=== PATIENT | female | born 1995 | race Caucasian/White ===

== ENCOUNTER → 2018-11-30 18:50 | Observation (INO) ==
[2018-11-30 17:22] LABS: Bilirubin,Urine Small (Negative); Blood,Urine Negative (Negative); Clarity,Urine Clear (Clear); Color,Urine Dark Yellow (Yellow); Glucose,Urine (UA) Normal (Normal); Ketones,Urine Trace mg/dL (Negative); Leukocyte Esterase,Urine Negative (Negative); Nitrite,Urine Negative (Negative); PH,Urine 6.5 pH Units (5.0-8.0); Protein,Urine Trace mg/dL (Neg-Trace); Specific Gravity,Urine > 1.030 (1.010-1.025); Urobilinogen,Urine Normal (Normal)
[2018-11-30 17:37] LABS: Amphetamine Screen,Urine Negative ng/mL (Cutoff=1000); Barbiturate Screen,Urine Negative ng/mL (Cutoff=200); Benzodiazepines Screen,Urine Negative ng/mL (Cutoff=200); Cannabinoid Screen,Urine Positive ng/mL (Cutoff = 50); Cocaine Screen,Urine Negative ng/mL (Cutoff= 300); Opiate Screen,Urine Negative ng/mL (Cutoff=300); Phencyclidine Screen,Urine Negative ng/mL (Cutoff=25)
--- NOTE | 2018-11-30 19:43 | OB/GYN Progress Note ---
Date of Encounter: 11/30/18 Time of Encounter: 19:31 - Assessment and Plan (1) 29 weeks gestation of Status: Acute (2) Round ligament pain Status: Acute Cervix closed, UA unremarkable, able to elicit round ligament pain. Discharged home with labor and when to return to triage precautions. Patient verbalizes understanding Subjective - Subjective Interval history: (0111) 29 1 weeks gestation presents to triage with complaints of lower abdominal pain in the right lower quadrant. Patient states she has been at home on modified bedrest. Just recently went back to work. Notice today with increased activity especially standing and walking and going from sitting to standing having right lower quadrant pain. No pain noted at rest. Reports good movement, denies vaginal bleeding or leaking of fluid. Antepartum ROS: movement normal, no loss of fluid, no vaginal bleeding, no contractions Objective - Vital Signs Vital Signs: Intake and Output 11/30/18 11/30/18 11/30/18 07:59 15:59 23:59 Other: Weight 119.8 kg Patient Weight 11/30/18 23:59 Weight 119.8 kg - Exam FHR: auscultation normal FHR comments: Baseline 140. Appropriate for gestational age Abdomen: Present: soft, gravid Cervical dilation: Closed/thick/high - Labs Labs: Abnormal lab results Ur Specific [place] > 1.030 (1.010-1.025) H 11/30/18 16:40 Urine Ketones Trace mg/dL (Negative) H 11/30/18 16:40 Urine Bilirubin Small (Negative) H 11/30/18 16:40 U Marijuana (THC) Screen Positive ng/mL (Cutoff = 50) H 11/30/18 16:40
== END | disposition home or self-care (01) ==
LOC: 1NENULAB
PROVIDERS: ADMIT Advanced Practice Midwife; ATTEND Advanced Practice Midwife

== ENCOUNTER 2018-12-26 20:05 | Observation (INO) ==
[2018-12-26 22:12] LABS: Candida DNA Not Detected (Not Detect); Gardnerella DNA Not Detected (Not Detect); Trichomonas DNA Not Detected (Not Detect)
== END 2018-12-26 20:50 | disposition home or self-care (01) ==
LOC: 1NENULAB
PROVIDERS: ADMIT Registered Nurse; ATTEND Registered Nurse

== ENCOUNTER → 2019-01-13 01:40 | Observation (INO) ==
[2019-01-13 00:48] LABS: Bilirubin,Urine Small (Negative); Blood,Urine Negative (Negative); Clarity,Urine Clear (Clear); Color,Urine Yellow (Yellow); Glucose,Urine (UA) Normal (Normal); Ketones,Urine Negative (Negative); Leukocyte Esterase,Urine Negative (Negative); Nitrite,Urine Negative (Negative); Protein,Urine Trace mg/dL (Neg-Trace); Specific Gravity,Urine > 1.030 (1.010-1.025); Urobilinogen,Urine Normal (Normal)
--- NOTE | 2019-01-13 00:54 | OB/GYN Progress Note ---
Date of Encounter: 01/13/19 Time of Encounter: 00:48 - Assessment and Plan (1) 35 weeks gestation of Current Visit: Yes Status: Acute (2) NST (non-stress test) reactive Current Visit: Yes Status: Acute Subjective - Subjective Principal diagnosis: contractions Interval history: Ms Hoffmann is a 23 year old at 35 weeks and 3 days that presents to triage with c/o contractions every 10-20 minutes that take her breath away for several hours. She states positive movement. She denies headaches, vision changes, epigastric pain, leaking of fluid, and vaginal bleeding. Her history is significant for 1 SAB and a demise at 22 weeks. She uses THC daily. She is scheduled for a repeat LTCS with BPS on 02/07/19. She is seen by Dr Soni for her care. Antepartum ROS: movement normal, contractions Objective - Vital Signs Vital Signs: Intake and Output 01/12/19 01/12/19 01/13/19 15:59 23:59 07:59 Other: Weight 123.468 kg Patient Weight 01/13/19 23:59 Weight 123.468 kg - Exam FHR: auscultation normal, category 1 FHR comments: Baseline 140 with moderate variability and15 x 15 accels. no decels Contractions every 7 minutes per TOCO, patient reports every 10-20 minutes Abdomen: Present: normal appearance, soft, gravid. Absent: tenderness Uterus: Present: normal. Absent: firm
[2019-01-13 00:58] LABS: Amphetamine Screen,Urine Negative ng/mL (Cutoff=1000); Barbiturate Screen,Urine Negative ng/mL (Cutoff=200); Benzodiazepines Screen,Urine Negative ng/mL (Cutoff=200); Cannabinoid Screen,Urine Negative ng/mL (Cutoff = 50); Cocaine Screen,Urine Negative ng/mL (Cutoff= 300); Opiate Screen,Urine Negative ng/mL (Cutoff=300); Phencyclidine Screen,Urine Negative ng/mL (Cutoff=25)
== END | disposition home or self-care (01) ==
LOC: 1NENULAB
PROVIDERS: ADMIT Advanced Practice Midwife; ATTEND Advanced Practice Midwife

== ENCOUNTER → 2019-01-28 23:00 | Observation (INO) ==
[2019-01-28 22:34] LABS: Bilirubin,Urine Negative (Negative); Blood,Urine Negative (Negative); Color,Urine Yellow (Yellow); Glucose,Urine (UA) Normal (Normal); Ketones,Urine Negative (Negative); Leukocyte Esterase,Urine Negative (Negative); Nitrite,Urine Negative (Negative); PH,Urine 6.5 pH Units (5.0-8.0); Protein,Urine Negative (Neg-Trace); Specific Gravity,Urine 1.024 (1.010-1.025); Urobilinogen,Urine Normal (Normal)
[2019-01-28 22:38] LABS: Amphetamine Screen,Urine Negative ng/mL (Cutoff=1000); Barbiturate Screen,Urine Negative ng/mL (Cutoff=200); Benzodiazepines Screen,Urine Negative ng/mL (Cutoff=200); Cannabinoid Screen,Urine Negative ng/mL (Cutoff = 50); Cocaine Screen,Urine Negative ng/mL (Cutoff= 300); Opiate Screen,Urine Negative ng/mL (Cutoff=300); Phencyclidine Screen,Urine Negative ng/mL (Cutoff=25)
[2019-01-28 22:43] LABS: Clarity,Urine Slightly Hazy (Clear)
--- NOTE | 2019-01-28 23:04 | OB/GYN Progress Note ---
Date of Encounter: 01/28/19 Time of Encounter: 22:59 - Assessment and Plan (1) 37 weeks gestation of Current Visit: Yes Status: Acute Reactive NST movement normal after monitoring bands placed on maternal abdomen Not ruptured Discharge home with labor precautions Follow up in office with routine care and PRN (2) NST (non-stress test) reactive Current Visit: Yes Status: Acute (3) Decreased movement Current Visit: Yes Status: Acute Qualifiers: Fetus number: single or unspecified fetus Trimester: third trimester Qualified Code(s): O36.8130 - Decreased movements, third trimester, not applicable or unspecified Subjective - Subjective Principal diagnosis: loss of fluid and decreased movement Interval history: Ms Hoffmann is a 23 year old at 37 week snad 4 days that presents to triage with c/o a large gush of fluid after having a bowel movement and an additional small gush after changing her underwear this evening along with decreased movement x 1 hour. She denies recent intercourse of submerging in water. She states normal movement until roughly 8 pm this evening. She denies headaches, vision changes, epigastric pain, leaking of fluid, cramping, and vaginal bleeding. She has had one previous delivery and this fetus is currently breech. She would like to have a repeat C/S and BPS - currently it is scheduled for 02/07/19. She sees Dr Soni for her care. Antepartum ROS: loss of fluid, no vaginal bleeding, no movement normal, no contractions Objective - Vital Signs Vital Signs: Intake and Output 01/28/19 01/28/19 01/28/19 07:59 15:59 23:59 Other: Weight 124 kg Patient Weight 01/28/19 23:59 Weight 124 kg - Exam FHR: auscultation normal, category 1 FHR comments: Not cristina Baseline 130 with moderate variability >15 x 15 accels and no decels movement palpable to both patient and CNM Abdomen: Present: normal appearance, soft, gravid Uterus: Present: normal. Absent: firm, tenderness Cervical dilation: Closed Cervix effacement: Thick station: High Comments: Nitrazine negative
== END | disposition home or self-care (01) ==
LOC: 1NENULAB
PROVIDERS: ADMIT Advanced Practice Midwife; ATTEND Advanced Practice Midwife

== ENCOUNTER 2019-02-07 05:39 | Inpatient (IN) ==
[2019-02-07] MEDS ORDERED: Famotidine 20 MG/2 ML VIAL IVP ONE (06:13)
[2019-02-07] MEDS ORDERED: Ringers Solution, Lactated 1,000 ML IVC ONE (06:13)
[2019-02-07] MEDS ORDERED: Metoclopramide 10 MG/2 ML VIAL IVP ONE (06:13)
[2019-02-07] MEDS ORDERED: Ringers Solution, Lactated 1,000 ML IVC SCH (06:15)
[2019-02-07] MEDS ORDERED: CeFAZolin Syr 3,000MG/30 ML 3,000 MG/30 ML SYRINGE IVPB ONE (06:18)
[2019-02-07 06:39] LABS: Basophils % 0.1 %; Eosinophils # 0.1 K/mcL (0.0-0.6); Eosinophils % 0.8 %; Hematocrit 37.7 % (35.3-44.9); Hemoglobin 12.3 g/dL (11.5-15.4); Immature Granulocytes % 0.9 % (0-4); Lymphocytes # 3.4 K/mcL (0.6-4.6); Lymphocytes % 20.8 %; Mean Corpuscular HGB Conc 32.6 g/dL (31.6-35.5); Mean Corpuscular Hemoglobin 28.2 pg (28.0-33.3); Mean Corpuscular Volume 86.5 fL (83.0-100.0); Mean Platelet Volume 11.9 fL (9.4-12.4); Monocytes # 0.7 K/mcL (0.0-1.3); Monocytes % 4.1 %; Neutrophils # 11.9 K/mcL (1.6-8.9); Platelet Count 171 K/mcL (140-400); Red Blood Count 4.36 M/mcL (3.82-4.97); Red Cell Distribution Width 14.7 % (11.5-14.5); Segmented Neutrophils % 73.3 %; White Blood Count 16.3 K/mcL (4.3-11.1)
[2019-02-07 06:44] LABS: Amphetamine Screen,Urine Negative ng/mL (Cutoff=1000); Barbiturate Screen,Urine Negative ng/mL (Cutoff=200); Benzodiazepines Screen,Urine Negative ng/mL (Cutoff=300); Cannabinoid Screen,Urine Negative ng/mL (Cutoff = 50); Cocaine Screen,Urine Negative ng/mL (Cutoff= 300); Opiate Screen,Urine Negative ng/mL (Cutoff=300); Phencyclidine Screen,Urine Negative ng/mL (Cutoff=25)
--- NOTE | 2019-02-07 07:08 | Anesthesia Evaluation PreOp ---
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 (chronic back pain, factor 5 = no known previous clots to take, Bipolar, anxiety/depression) Other Medical History: Other ([place] BMI=40) Anesthesia History: No Prior Anesthetic Complications, Past Anesthesia (no known family hx, previous with epidural,) Alcohol Use: none Drug use: marijuana Medications and Allergies No Known Home Drugs 01/28/19 [History] Allergy/AdvReac Type Severity Reaction Status Date / Time hydromorphone [From Dilaudid] Allergy Severe Anaphylaxis Verified 01/13/19 00:32 latex Allergy Rash Verified 01/13/19 00:32 Anesthesia Results - Labs 02/07/19 06:01 Anesthesia Exam - HEENT Pupil (Motor): Pupils equal Mallampati: II Teeth: Normal Oral Opening: Greater than 3 - 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
[2019-02-07] MEDS ORDERED: *HR* Morphine Sulfate/PF 10 MG/10 ML AMPUL ONE (07:23)
[2019-02-07] MEDS ORDERED: EPHEDrine 50 MG/ML VIAL ONE (07:23)
[2019-02-07] MEDS ORDERED: Ondansetron 4 MG/2 ML VIAL ONE (07:24)
[2019-02-07] MEDS ORDERED: Ringers Solution, Lactated 1,000 ML ONE (07:24)
[2019-02-07] MEDS ORDERED: *HR* Oxytocin 10 UNIT/ML VIAL IM ONE (07:24)
[2019-02-07] MEDS ORDERED: *HR* FentaNYL (PF) 100 MCG/2 ML VIAL ONE (07:24)
[2019-02-07] MEDS ORDERED: *HR* Phenylephrine 10 MG/ML VIAL ONE (07:27)
--- NOTE | 2019-02-07 07:37 | OB/GYN History & Physical ---
Date of Encounter: 02/07/19 Time of Encounter: 07:47 Assessment and Plan (1) 39 weeks gestation of Current visit: Yes Status: Chronic (2) Unwanted fertility Current visit: Yes Status: Acute (3) Previous delivery affecting Current visit: Yes Status: Chronic (4) Gestational diabetes Current visit: Yes Status: Acute Qualifiers: Gestational diabetes mellitus control: diet-controlled Trimester: third trimester Qualified Code(s): O24.410 - Gestational diabetes mellitus in , diet controlled History of Present Illness HPI: Ms. Hoffmann is a 23 year old female 23-year-old 4 para 1 AB 1 1 white female enters today for repeat section. Patient's has been complicated from gestational diabetes. She also had an usual antibody in her blood type and screen. She been seen by maternal- medicine who recommends Lovenox for 6 weeks. Her gestational diabetes has been well controlled. She desires sterilization as well. She has a history of loss at 22 weeks. Past Med Surg Social Fam HX - Past Medical History Medical history: non-contributory Additional medical history: Psychiatric history: ADHD, bipolar, depression - Past Surgical History Surgical History: no surgical history, , other Additional surgical history: T&A, D&C - Social History Smoking Status: Current every day smoker Smokeless Tobacco Status: No Alcohol use: none Drug use: marijuana - Family History Mother Living Status: Still Living Hx Family Cardiac Disorders: Yes (hypertension) Father Family Member Ethnicity: Non- Living Status: Still Living Hx Family Cardiac Disorders: Yes (htn) Hx Family Respiratory Disorders: No Hx Family Cancer: No Hx Family GI Disorders: No Hx Family Endocrine Disorder: No Hx Family Musculoskeletal Disorders: No Hx Family Neuromuscular Disorders: No Hx Family Neurologic Disorders: No Hx Family HEENT Disorders: No Hx Family Autoimmune Disorders: No Hx Family Reproductive Disorders: No Hx Family Psychosocial Disorders: No Hx Family Medical Disorders: No Obstetrical History - Pregnancies : 4 Para: 1 Term: 1 : 1 Livin Medications and Allergies No Known Home Drugs 01/28/19 [History] Allergy/AdvReac Type Severity Reaction Status Date / Time hydromorphone [From Dilaudid] Allergy Severe Anaphylaxis Verified 01/13/19 00:32 latex Allergy Rash Verified 01/13/19 00:32 Review of System OB All systems PM: reviewed and no additional remarkable complaints except as stated - Genitourinary Genitourinary: amenorrhea - Menstruation Menstruation: amenorrhea Exam - Vital Signs Vital signs: Initial Vital Signs Temp Pulse Resp BP 98.6 F 95 16 130/77 02/07/19 05:56 02/07/19 05:56 02/07/19 05:56 02/07/19 05:56 - Constitutional Constitutional: well developed, morbidly obese - HEENT HEENT: PERRL, Normocephaly - Neck Neck exam: full ROM - Lungs Respiratory exam: CTAB - Cardiovascular Cardiovascular exam: RRR - Abdomen Abdomen: Present: bowel sounds normal, gravid - Extremities Extremities exam: full ROM Deep Tendon Reflex Grade: 2+ Normal - Vagina Vagina: Present: normal moisture - Uterus Uterus exam: Present: enlarged - Anus/Rectum Anus/Rectum: Present: normal perianal skin Results Result Diagrams: 02/07/19 06:01 Abnormal lab results WBC 16.3 K/mcL (4.3-11.1) H 02/07/19 06:01 RDW 14.7 % (11.5-14.5) H 02/07/19 06:01 Neutrophils # 11.9 K/mcL (1.6-8.9) H 02/07/19 06:01 All other labs normal.
[2019-02-07] MEDS ORDERED: Oxytocin 20 units/ LR 1000 mL 40 UNIT/2,000 ML BAG IVC ONE (07:42)
[2019-02-07] MEDS ORDERED: *HR* Enoxaparin 30 MG/0.3 ML SYRINGE SQ SCH ×3 (09:00→18:00)
[2019-02-07] MEDS ORDERED: Morphine Sulfate 2 MG/ML SYRINGE IVP PRN (09:18)
[2019-02-07] MEDS ORDERED: Acetaminophen IV 1,000 MG/100 ML INFUS..BTL IVPB ONE (09:18)
[2019-02-07] MEDS ORDERED: Ondansetron 4 MG/2 ML VIAL IVP ONE (09:18)
--- NOTE | 2019-02-07 09:30 | OB/GYN Procedure Note ---
Section - Date of procedure: 02/07/19 Preop diagnosis: desires repeat , desires sterilization Post-op diagnosis: same Procedure: repeat low transverse, bilateral tubal ligation Surgeon: Lex Singleton Blood Loss: 700 Was there an assistant engineer present: No Anesthesiologist: Andrés Castrejon Anesthesia Type: Spinal section complications: none Disposition: PACU Specimens: Placenta, Right tube segment, Left tube segment - (s) Infant A Delivery Date: 02/07/19 Delivery Time: 08:26 Presentation: complete breech Route of delivery: breech extraction Gender: Female Viability: Viable Pounds: 8 Ounces: 3 at 1 minute: 8 at 5 minutes: 9 Placenta: complete extraction - Narrative Narrative: Patient was taken to the operating room. After satisfactory anesthesia was achieved, patient placed in supine position and prepped and draped in usual manner. After appropriate timeout was obtained, abdomen was entered through standard Maylard incision. The Irena retractor was placed. Peritoneum overlying the lower uterine segment was incised in U-shaped fashion. Uterine cavity was entered sharply extended laterally. Fluid was clear. Buttocks delivered. Torso delivered. Arms and shoulders and head delivered. The umbilical cord double clamped cut and the was handed to nursery staff for further evaluation. Placenta was removed. Uterus was exteriorized. Uterus closed with 0 Monocryl in a single layer. After assurance hemostasis, fallopian tubes were bilaterally resected and sent to pathology for analysis. Pedicles ligated using 2-0 chromic. After assurance hemostasis, the Irena retractor was removed. The ED the abdomen was closed using 0 strata fix is tender fascia and the fascia. 2-0 Vicryl used on the subcutaneous. 4-0 Monocryl was used on the skin. Sterile dressing was applied.. Patient did well was taken to recovery room in satisfactory condition. Counts were correct.
--- NOTE | 2019-02-07 09:52 | Anesthesia Evaluation Post Op ---
Date of Encounter: 02/07/19 Time of Encounter: 09:50 - Vital Signs Vital Signs: vss - Lungs Lungs: Clear Ascult./Percussion - Airway Airway: Non-obstructed - Mental Status Mental Status: Alert & Oriented, Answers Appropriately - Pain Pain Scale used: CelisOsman (Faces) - Nausea Vomiting Nausea Vomiting: Not Present - Hydration Hydration: Ice chips - Discharge PostOp Status: Transfer Patient to floor (when criteria met.)
[2019-02-07] MEDS ORDERED: *HR* Promethazine 25 MG/ML VIAL ONE (10:27)
[2019-02-07] MEDS ORDERED: Rho Immune Globulin 1,500 UNIT SYRINGE IM ONE (11:55)
[2019-02-07] MEDS ORDERED: Oxytocin 20 units/ LR 1000 mL 20 UNIT/1,000 ML BAG IVC SCH (11:55)
[2019-02-07] MEDS ORDERED: Metoclopramide 10 MG/2 ML VIAL IVP PRN (11:55)
[2019-02-07] MEDS ORDERED: Ondansetron 4 MG/2 ML VIAL IVP PRN (11:55)
[2019-02-07] MEDS ORDERED: Sennosides 8.6 MG TABLET PO PRN (11:55)
[2019-02-07] MEDS: *HR* OxyCODONE/APAP 5/325 TABLET PO PRN (18:35)
[2019-02-07] MEDS: Simethicone 80 MG TAB.CHEW PO PRN (20:54)
[2019-02-07] MEDS: Ibuprofen 600 MG TABLET PO SCH (20:55)
[2019-02-08] MEDS: *HR* OxyCODONE/APAP 5/325 TABLET PO PRN ×4 (00:26→20:35)
[2019-02-08] MEDS: Ibuprofen 600 MG TABLET PO SCH ×3 (04:06→18:37)
[2019-02-08 07:02] LABS: Basophils % 0.2 %; Eosinophils # 0.1 K/mcL (0.0-0.6); Hematocrit 31.2 % (35.3-44.9); Immature Granulocytes % 0.8 % (0-4); Lymphocytes # 2.7 K/mcL (0.6-4.6); Lymphocytes % 24.4 %; Mean Corpuscular HGB Conc 32.7 g/dL (31.6-35.5); Mean Corpuscular Volume 85.7 fL (83.0-100.0); Mean Platelet Volume 12.3 fL (9.4-12.4); Monocytes # 0.5 K/mcL (0.0-1.3); Monocytes % 4.6 %; Neutrophils # 7.6 K/mcL (1.6-8.9); Platelet Count 133 K/mcL (140-400); Red Blood Count 3.64 M/mcL (3.82-4.97)
[2019-02-08 07:04] LABS: Hemoglobin 10.2 g/dL (11.5-15.4)
[2019-02-08] MEDS: Prenatal Vit/FA 1 EACH TABLET PO SCH (08:24)
--- NOTE | 2019-02-08 08:34 | OB/GYN Progress Note ---
Date of Encounter: 02/08/19 Time of Encounter: 08:29 - Assessment and Plan (1) Status post delivery Current Visit: Yes Status: Acute Stable POD#1 Continue current management Start Lovenox BID anticipate discharge tomorrow Subjective - Subjective Interval history: Pt sitting up in bed, states feels well, pain well managed, tolerates diet, no flatus, Patient reports: appetite normal, voiding normally, pain well controlled, ambulating normally : doing well Objective - Vital Signs Latest vital signs: Vital Signs Temp Pulse Resp BP Pulse Ox 02/08/19 07:24 97.9 F 87 15 106/65 98 02/07/19 19:45 98.3 F 88 14 104/68 97 02/07/19 14:30 98.2 F 82 16 120/71 98 02/07/19 13:30 97.4 F L 94 16 108/64 98 02/07/19 12:34 97 16 110/74 97 02/07/19 12:04 97.8 F 90 16 112/68 97 Intake and Output 02/07/19 02/08/19 02/08/19 23:59 07:59 15:59 Intake Total 400 / 400 Output Total 550 / 550 Balance -150 / -150 Intake: Oral 400 / 400 Output: Urine 300 / 300 Catheter 250 / 250 - Exam Lungs: bilateral: normal Chest: Normal S1, Normal S2 Extremities: Present: normal Abdomen: Present: soft Incision: Present: intact (YENIFER) Uterus: Present: firm (U) - Labs Labs: Laboratory Results - last 24 hr 02/07/19 02/08/19 02/08/19 06:01 06:35 06:35 WBC 11.0 RBC 3.64 L Hgb 10.2 L D Hct 31.2 L MCV 85.7 MCH 28.0 MCHC 32.7 RDW 15.0 H Plt Count 133 L MPV 12.3 Immature Gran % 0.8 Seg Neutrophils % 69.0 Lymphocytes % 24.4 Monocytes % 4.6 Eosinophils % 1.0 Basophils % 0.2 Neutrophils # 7.6 Lymphocytes # 2.7 Monocytes # 0.5 Eosinophils # 0.1 Basophils # 0.0 Glucose 170 H Ur Buprenorphine Scrn Negative
[2019-02-08] MEDS ORDERED: *HR* Enoxaparin 40 MG/0.4 ML SYRINGE SQ SCH (09:00)
[2019-02-08] MEDS: *HR* Enoxaparin 30 MG/0.3 ML SYRINGE SQ SCH ×2 (09:34→20:37)
[2019-02-08] MEDS ORDERED: Lanolin 7 G OINT...G. TP PRN (20:25)
[2019-02-08] MEDS: Simethicone 80 MG TAB.CHEW PO PRN (20:35)
[2019-02-09] MEDS: Ibuprofen 600 MG TABLET PO SCH ×3 (01:37→13:43)
[2019-02-09] MEDS: *HR* OxyCODONE/APAP 5/325 TABLET PO PRN ×2 (03:08→09:43)
[2019-02-09] MEDS: Prenatal Vit/FA 1 EACH TABLET PO SCH (07:45)
[2019-02-09 08:06] VITALS: BP 109/72
--- NOTE | 2019-02-09 08:51 | Discharge Summary ---
Date of Encounter: 02/09/19 Time of Encounter: 08:49 - Discharge Diagnosis (1) At risk for deep venous thrombosis Priority: Secondary Status: Acute Comments: Pt with positive beta-2 glycoprotein IGG antibody and family history of DVT after surgery. Per MFM and hematology pt is to be on 40mg Lovenox subcutaneous daily for 6 weeks post-op. (2) Gestational diabetes Priority: Secondary Status: Acute Comments: Accuchecks have been WNL except one serum draw. Plan for 2 hour GTT at PPV. Qualifiers: Gestational diabetes mellitus control: diet-controlled Trimester: third trimester Qualified Code(s): O24.410 - Gestational diabetes mellitus in , diet controlled (3) Status post delivery Priority: Primary Status: Acute Comments: Pt meeting all post-op milestones. She is requesting discharge home today. She does admit a history of depression for which she was on Celexa and she desires to restart that now. She reports good mood today. (4) Unwanted fertility Priority: Secondary Status: Acute Comments: Pt is s/p BPS - Discharge Medications Prescriptions: New Breast Pump [BREAST PUMP] 1 each .ROUTE AD #1 each Docusate [Colace] 100 mg PO BID #60 capsule Simethicone [Gas-X] 80 mg PO TID PRN tab.chew PRN Reason: Dyspepsia Lanolin [Lansinoh] 1 appl TP Q4HR PRN oint...g. PRN Reason: Sore Nipples Ibuprofen [Motrin] 600 mg PO Q6HR #30 tablet OxyCODONE/APAP 5/325 [Percocet 5/325 MG] 1 each PO Q6HR PRN 7 Days #28 tablet PRN Reason: Moderate pain 4-6 Citalopram Hydrobromide [Celexa] 20 mg PO DAILY #30 tab Mupirocin [Bactroban Oint] 1 appl TP BID #1 tube Enoxaparin [Lovenox] 40 mg SQ DAILY #42 syr Home Medications: Breast Pump [BREAST PUMP] 1 each .ROUTE AD #1 each 02/09/19 [Rx] Citalopram Hydrobromide [Celexa] 20 mg PO DAILY #30 tab 02/09/19 [Rx] Docusate [Colace] 100 mg PO BID #60 capsule 02/09/19 [Rx] Enoxaparin [Lovenox] 40 mg SQ DAILY #42 syr 02/09/19 [Rx] Ibuprofen [Motrin] 600 mg PO Q6HR #30 tablet 02/09/19 [Rx] Lanolin [Lansinoh] 1 appl TP Q4HR PRN oint...g. 02/09/19 [Rx] Mupirocin [Bactroban Oint] 1 appl TP BID #1 tube 02/09/19 [Rx] OxyCODONE/APAP 5/325 [Percocet 5/325 MG] 1 each PO Q6HR PRN 7 Days #28 tablet 02/09/19 [Rx] Simethicone [Gas-X] 80 mg PO TID PRN tab.chew 02/09/19 [Rx] Allergies/Adverse Reactions: Allergy/AdvReac Type Severity Reaction Status Date / Time hydromorphone [From Dilaudid] Allergy Severe Anaphylaxis Verified 01/13/19 00:32 latex Allergy Rash Verified 01/13/19 00:32 Data Procedures and tests throughout hospitalization: Laboratory Tests 02/07/19 02/07/19 02/08/19 06:01 06:01 06:35 WBC 16.3 H 11.0 RBC 4.36 3.64 L Hgb 12.3 10.2 L D Hct 37.7 31.2 L MCV 86.5 85.7 MCH 28.2 28.0 MCHC 32.6 32.7 RDW 14.7 H 15.0 H Plt Count 171 133 L MPV 11.9 12.3 Immature Gran % 0.9 0.8 Seg Neutrophils % 73.3 69.0 Lymphocytes % 20.8 24.4 Monocytes % 4.1 4.6 Eosinophils % 0.8 1.0 Basophils % 0.1 0.2 Neutrophils # 11.9 H 7.6 Lymphocytes # 3.4 2.7 Monocytes # 0.7 0.5 Eosinophils # 0.1 0.1 Basophils # 0.0 0.0 Glucose POC Glucose Urine Opiates Screen Negative Ur Buprenorphine Scrn Negative Ur Barbiturates Screen Negative Ur Phencyclidine Scrn Negative Ur Amphetamines Screen Negative U Benzodiazepines Scrn Negative Urine Cocaine Screen Negative U Marijuana (THC) Screen Negative Ur Drug Screen Interp See Below 02/08/19 02/08/19 06:35 20:32 WBC RBC Hgb Hct MCV MCH MCHC RDW Plt Count MPV Immature Gran % Seg Neutrophils % Lymphocytes % Monocytes % Eosinophils % Basophils % Neutrophils # Lymphocytes # Monocytes # Eosinophils # Basophils # Glucose 170 H POC Glucose 104 H Urine Opiates Screen Ur Buprenorphine Scrn Ur Barbiturates Screen Ur Phencyclidine Scrn Ur Amphetamines Screen U Benzodiazepines Scrn Urine Cocaine Screen U Marijuana (THC) Screen Ur Drug Screen Interp Labs on day of discharge: Labs from last 24 hours 02/08/19 20:32 POC Glucose 104 H Date of admission: 02/07/19 05:39 Primary care physician: Miguel A Staton DO Discharging clinician: Faustina Kern Anticipated date of discharge: 02/09/19 - Patient Status Disposition: Home, Self-Care Condition: Good Functional capacity at discharge: independent ambulation Overall status at discharge: patient is progressing back to baseline - Discharge Instructions Follow Up With: Miguel A Barnes DO [Primary Care Provider] - Lex Soni MD [Partnered Physician] - - Diet and Activity Activity: increase activity as tolerated Diet: regular diet Hospital Course Reason for admission: section Delivery: section Episiotomy: none Laceration: none Other procedures: tubal ligation complications: none Discharge diagnosis: IUP at term delivered [place] baby: female Hospital course: - Date of procedure: 02/07/19 Preop diagnosis: desires repeat , desires sterilization Post-op diagnosis: same Procedure: repeat low transverse, bilateral tubal ligation Surgeon: Lex Soni Quantitated Blood Loss: 700 Was there an therapy assistant present: No Anesthesiologist: Andrés Castrejon Anesthesia Type: Spinal section complications: none Disposition: PACU Specimens: Placenta, Right tube segment, Left tube segment - Infant (s) A Delivery Date: 02/07/19 Delivery Time: 08:26 Presentation: complete breech Route of delivery: breech extraction Gender: Female Viability: Viable Pounds: 8 Ounces: 3 at 1 minute: 8 at 5 minutes: 9 Placenta: complete extraction Time Attestation: Total time spent providing and/or coordinating discharge services: Time Spent: Less than 30 minutes - VTE Documentation of Mechanical Device: Intermittent pneumatic compression device Exam - Constitutional Vitals: Temp Pulse Resp BP Pulse Ox 98.2 F 91 16 109/72 99 02/09/19 08:05 02/09/19 08:05 02/09/19 08:05 02/09/19 08:05 02/08/19 20:35 General appearance IM: A&O X 3 - Respiratory Respiratory exam: Present: CTAB - Cardiovascular Cardiovascular exam IM: Present: RRR - GI/Abdominal GI/Abdominal exam IM: soft, no peritoneal signs Incision: dressed (YENIFER dry and intact) - Uterine Tone: Firm Uterus Position: 1 Finger Below Umbilicus - Extremities Exam Extremities exam IM: Present: pedal edema (1+ bilaterally, no erythema or warmth) - Neurological Exam Neurological exam: normal gait, oriented X3 - Psychiatric Additional comments: appears and reports good mood
[2019-02-09] MEDS: *HR* Enoxaparin 30 MG/0.3 ML SYRINGE SQ SCH (09:43)
[2019-02-09] MEDS ORDERED: FLU Vac QV 19-20 (6Month+)/PF 0.5 ML SYRINGE IM ONE (13:01)
== END 2019-02-09 15:41 | disposition home or self-care (01) | DRG 540 ==
LOC: 1NENULAB 05:39 → 1NENUOBS 11:26
PROVIDERS: ADMIT Obstetrics & Gynecology; ATTEND Obstetrics & Gynecology